=== PATIENT | male | born 1995 | race African-American/Black ===

== ENCOUNTER 2024-07-11 12:52 | Emergency (ER) | payer MEDICAID ==
[~2024-07-11] VITALS: Ht 188 cm; Wt 147.4 kg
[2024-07-11 13:00] VITALS: O2SAT 99
[2024-07-11] MEDS ORDERED: AMOX1TAB16 MT (14:26)
[2024-07-11] MEDS ORDERED: NAPR-679 MT (14:26)
[2024-07-11] MEDS ORDERED: ACET-2708 MT (14:28)
[2024-07-11 14:38] VITALS: BP 135/79; PULSE 75; RESP 16; TEMP 36.78072; O2SAT 100
== END 2024-07-11 14:41 | disposition home or self-care (01) ==
LOC: ER 12:52
DX: K04.7 Periapical abscess without sinus (principal); Z79.1 Long term (current) use of non-steroidal anti-inflammatories (NSAID)
CPT/HCPCS: 99283